=== PATIENT | female | born 1995 | race Caucasian/White ===

== ENCOUNTER 2024-09-02 21:24 | Emergency (ER) | payer OTHER ==
[2024-09-02 21:52] VITALS: RESP 18; BMI 56.7
[2024-09-02 22:05] VITALS: BP 119/72; PULSE 108; TEMP 98.8
[2024-09-02] MEDS ORDERED: IBUPROFEN 600 MG TABLET (FP) PO ONE (22:37)
[2024-09-02] MEDS ORDERED: AMOX TR/POT CLAV 875MG/125MG TABLETS (FP) ONE (22:38)
[2024-09-02] MEDS: AMOX TR/POT CLAV 875MG/125MG TABLETS (FP) PO ONE (22:39)
[2024-09-02] MEDS: IBUPROFEN 600 MG TABLET (FP) PO ONE (22:39)
== END 2024-09-02 22:55 | disposition home or self-care (01) ==
LOC: FER 21:24
DX: K61.1 Rectal abscess (principal); R11.0 Nausea; R53.81 Other malaise
CPT/HCPCS: 99283-25